=== PATIENT | male | born 1955 | race African-American/Black ===

== ENCOUNTER → 2016-07-10 | Outpatient (CLI) | payer OTHER ==
[2014-03-21 19:16] VITALS: BP 121/78
[~2016-07-10] MED LIST: ALBU2.5V5 IH; ASPI325T4 PO; FLUT1DIS3 IH; GABA-586 PO; GABA600T PO; HUM100IN3 SQ; IBUP-1027 PO; LISI1TAB7 PO; OXYC1TAB9 PO; POLY17PO29 PO; PROAIR HFA8.5 GM IH; TAMS0.4C2 PO
--- NOTE | 2016-07-10 16:16 | RAD ---
PROCEDURE MRI lumbar spine without contrast. HISTORY Low back pain with left leg radiculopathy TECHNIQUE Multiplanar, multi sequential non contrast MR imaging was performed of the lumbar spine. COMPARISON None FINDINGS Lumbar vertebral body stature is maintained. There is negligible anterior spondylolisthesis at L4-5. There is mild degenerative disc disease L4-5. There is nonspecific edema of the posterior subcutaneous fat of the lower back. Conus terminates normally at L1. There is likely hemangioma of the T11 vertebral body posteriorly. L1-2: Neural foramina and spinal canal are adequate. L2-3: There is mild to moderate buckling of the ligamentum flavum and mild facet hypertrophic change. Spinal canal and neural foramina are adequate. L3-4: There is mild to moderate facet degenerative change and mild buckling of the ligamentum flavum. There is negligible disc osteophyte complex greater in the inferior neural foramina, left greater than right. There is very mild narrowing of the left neural foramen, right neural foramen adequate. Spinal canal is overall adequate. L4-5: There is mild to moderate facet degenerative change and buckling of the ligamentum flavum. There is mild narrowing of the far lateral recesses bilaterally. There is mild neural foramina compromise bilaterally greater on the right. L5-S1: Spinal canal is adequate. There is mild to moderate facet degenerative change bilaterally. Neural foramina are overall adequate. IMPRESSION There is mild narrowing of the lateral recesses bilaterally at L4-5. There is negligible anterior spondylolisthesis at L4-5 at which there is facet degenerative change and buckling of the ligamentum flavum. There is mild, right greater left L4-5 neural foramina compromise. There is mild degenerative disc disease and spondylosis at L4-5. Electronically signed by: Sandeep Gonzáles MD (July 10, 2016 16:15:27)
== END | disposition home or self-care (01) ==
LOC: MRI 16:03
PROVIDERS: ATTEND Family Medicine
DX: M47.896 Other spondylosis, lumbar region (principal)
CPT/HCPCS: 72148

== ENCOUNTER → 2021-05-29 | Outpatient (CLI) | payer MEDICARE ==
[2014-03-21 19:16] VITALS: BP 121/78
[~2021-05-29] MED LIST changes: +ALBU2.5V8 IH; -ASPI325T4 PO; +ASPI325T8 PO; -GABA-586 PO; +GABA300C18 PO; +LISI10TA16 PO; +LISI1TAB39 PO; -LISI1TAB7 PO; +OXYC1TAB20 PO; -OXYC1TAB9 PO; -PROAIR HFA8.5 GM IH
--- NOTE | 2021-05-30 13:58 | KCIC ---
Study: XR CERVICAL SPINE 2-3V Indication: Right upper arm pain. Comparison: None. Findings: Vertebral body height is maintained. No listhesis. Minimal disc space height loss at C4-C5. Ventral o steophyte formation from C4 to C5 through C6-C7. No more than mild uncovertebral joint hypertrophy an d facet arthrosis. Intact dens. No malalignment across the C1-C2 lateral masses. Within normal limits atlantodental interval. Normal thickness of the prevertebral soft tissues. Unremarkable lung apices. Left more so than right carotid calcific atherosclerosis. Impression: 1. No acute radiographic abnormality of the cervical spine. 2. Mild degenerative changes from C4-C5 through C6-C7. 3. Left more so than right carotid calcific atherosclerosis. Electronically signed by: LLOYD ELIAS MD (05/30/2021 1:56 PM) [id number]
--- NOTE | 2021-05-30 14:00 | KCIC ---
Study: XR LUMBAR SPINE 4+V Indication: Low back pain. Comparison: Lumbar spine MRI 07/10/2016 Findings: 5 nonrib-bearing lumbar vertebral elements. Within normal limits alignment in the coronal plane. Lumb ar lordosis is maintained. Grade 1 anterolisthesis of L4 on L5. Mild discogenic arthrosis without sig nificant disc space height loss at L4-L5. Mild to moderate lower lumbar facet arthrosis. No suspiciou s vertebral body height loss. Mild degenerative changes at the sacroiliac joints and partially assess ed hips. Mild aortic calcific atherosclerosis. Impression: Degenerative changes primarily at the lower lumbar spine with mild discogenic arthrosis at L4-L5 and mild/moderate lower lumbar facet degeneration. Degenerative grade 1 anterolisthesis of L4 on L5. Electronically signed by: LLOYD ELIAS MD (05/30/2021 1:57 PM) [id number]
== END ==
LOC: KCIC 10:30
PROVIDERS: ATTEND Family Medicine
DX: M47.816 Spondylosis without myelopathy or radiculopathy, lumbar region (principal); M43.16 Spondylolisthesis, lumbar region; M46.1 Sacroiliitis, not elsewhere classified; M47.812 Spondylosis without myelopathy or radiculopathy, cervical region; I65.23 Occlusion and stenosis of bilateral carotid arteries; M25.78 Osteophyte, vertebrae; M79.601 Pain in right arm
CPT/HCPCS: 72040; 72110